=== PATIENT | male | born 1955 | race Caucasian/White ===

== ENCOUNTER 2021-06-18 15:53 | Inpatient (IN) ==
[2021-06-18] MEDS ORDERED: Naloxone 0.4 MG/ML INJ IVP PRN (20:09)
[2021-06-18] MEDS ORDERED: Ondansetron 4 MG/2 ML VIAL IVP PRN (20:09)
[2021-06-18] MEDS ORDERED: *HR* Promethazine 25 MG/ML VIAL IM PRN (20:09)
[2021-06-18] MEDS ORDERED: Acetaminophen 325 MG TABLET PO PRN (20:09)
[2021-06-18] MEDS ORDERED: *HR* OxyCODONE Immed Rel 5 MG TABLET PO PRN (20:09)
[2021-06-18] MEDS ORDERED: Melatonin 3 MG TABLET PO PRN (20:09)
[2021-06-18] MEDS ORDERED: Perflutren Lipid Microsphere 1.3 ML in 0.9 % Sodium Chloride 8.7 ML IVP PRN (20:11)
[2021-06-18] MEDS ORDERED: D5% in Water 1,000 ML IVC PRN (20:14)
[2021-06-18] MEDS ORDERED: *HR* Dextrose 50 % in Water (Vial) 50 ML VIAL IVP PRN (20:14)
[2021-06-18] MEDS ORDERED: Dextrose Gel 15 GM/37.5 ML TUBE PO PRN ×2 (20:14)
[2021-06-18] MEDS ORDERED: *HR* Heparin 5,000 UNIT/ML VIAL SQ SCH (22:00)
[2021-06-18] MEDS: Furosemide 40 MG/4 ML VIAL IVP SCH (22:30)
[2021-06-18] MEDS: Insulin DETEMIR 100 UNIT/ML X5UNITS SUBQ SCH (22:30)
[2021-06-19] MEDS: Insulin LISPRO 300 UNITS/3 ML VIAL SUBQ SCH ×4 (02:19→19:28)
[2021-06-19 02:54] LABS: Basophils # 0.1 K/mcL (0.0-0.2); Basophils % 0.5 %; Eosinophils # 0.1 K/mcL (0.0-0.6); Eosinophils % 0.7 %; Hematocrit 46.2 % (37.5-50.1); Immature Granulocytes % 0.4 % (0-4); Lymphocytes # 2.1 K/mcL (0.6-4.6); Lymphocytes % 20.8 %; Mean Corpuscular HGB Conc 32.5 g/dL (31.6-35.5); Mean Corpuscular Hemoglobin 28.7 pg (28.0-33.3); Mean Corpuscular Volume 88.3 fL (83.0-100.0); Monocytes # 0.7 K/mcL (0.0-1.3); Monocytes % 7.4 %; Platelet Count 188 K/mcL (140-400); Red Blood Count 5.23 M/mcL (4.19-5.50); Red Cell Distribution Width 14.6 % (11.5-14.5); Segmented Neutrophils % 70.2 %
[2021-06-19 03:06] LABS: INR 1.4; Prothrombin Time 15.9 Seconds (9.4-12.1)
[2021-06-19] MEDS ORDERED: *HR* Heparin 5,000 UNIT/ML VIAL IVP PRN (03:23)
[2021-06-19] MEDS ORDERED: *HR* Heparin 5,000 UNIT/ML VIAL IVP ONE (03:23)
[2021-06-19 03:32] LABS: Alanine Aminotransferase 16 Units/L (7-52); Albumin 4.1 g/dL (3.5-5.7); Albumin/Globulin Ratio 1.3 (1.1-2.2); Alkaline Phosphatase 62 Units/L (34-104); Aspartate Amino Transferase 18 Units/L (13-39); BUN/Creatinine Ratio 19 (6-26); Blood Urea Nitrogen 23 mg/dL (8-23); Calcium 9.6 mg/dL (8.6-10.3); Carbon Dioxide 32 mEq/L (23-29); Chloride 98 mEq/L (98-107); Chol/HDL Ratio 4.1 (0-4.9); Cholesterol 140 mg/dL (< 200); Globulin 3.1 g/dL (2.4-3.5); Glucose 128 mg/dL (70-105); HDL Cholesterol 34 mg/dL (40-59); LDL Cholesterol,Calculated 89 mg/dL (< 100); Magnesium 1.9 mg/dL (1.6-2.6); Osmolality,Calculated 295 (280-300); Phosphorous 4.2 mg/dL (2.7-4.5); Potassium 3.9 mEq/L (3.5-5.1); Sodium 140 mEq/L (136-145); Total Protein 7.2 g/dL (6.4-8.9); Triglycerides 87 mg/dL (< 150); eGFR For African Americans > 60 (> 60); eGFR For Non-African Americans 59 (> 60)
[2021-06-19] MEDS: Heparin 25,000UNIT/250ML 1/2NS 25,000 UNIT/250 ML IV.SOLN IVC SCH (04:03)
[2021-06-19] MEDS: Furosemide 40 MG/4 ML VIAL IVP SCH ×2 (11:35→16:16)
[2021-06-19] MEDS: Aspirin Enteric Coated 81 MG Tablet PO SCH (11:35)
[2021-06-19] MEDS: *HR* Heparin 5,000 UNIT/ML VIAL IVP PRN (11:46)
[2021-06-19] MEDS: carvediloL 6.25 MG TABLET PO SCH (16:16)
[2021-06-19] MEDS: Insulin DETEMIR 100 UNIT/ML X5UNITS SUBQ SCH (20:58)
[2021-06-20] MEDS: *HR* Heparin 5,000 UNIT/ML VIAL IVP PRN (01:21)
[2021-06-20] MEDS: Heparin 25,000UNIT/250ML 1/2NS 25,000 UNIT/250 ML IV.SOLN IVC SCH (02:24)
[2021-06-20 02:31] LABS: Basophils # 0.1 K/mcL (0.0-0.2); Basophils % 0.5 %; Eosinophils # 0.1 K/mcL (0.0-0.6); Hematocrit 47.1 % (37.5-50.1); Hemoglobin 15.6 g/dL (12.9-16.9); Immature Granulocytes % 0.2 % (0-4); Lymphocytes # 3.4 K/mcL (0.6-4.6); Mean Corpuscular HGB Conc 33.1 g/dL (31.6-35.5); Mean Corpuscular Hemoglobin 29.2 pg (28.0-33.3); Mean Corpuscular Volume 88.2 fL (83.0-100.0); Monocytes # 0.9 K/mcL (0.0-1.3); Monocytes % 7.3 %; Neutrophils # 7.3 K/mcL (1.6-8.9); Platelet Count 189 K/mcL (140-400); Red Blood Count 5.34 M/mcL (4.19-5.50); Red Cell Distribution Width 14.5 % (11.5-14.5); White Blood Count 11.8 K/mcL (4.3-11.1)
[2021-06-20 02:51] LABS: BUN/Creatinine Ratio 19 (6-26); Blood Urea Nitrogen 23 mg/dL (8-23); Calcium 9.5 mg/dL (8.6-10.3); Carbon Dioxide 31 mEq/L (23-29); Chloride 96 mEq/L (98-107); Glucose 135 mg/dL (70-105); Osmolality,Calculated 290 (280-300); Potassium 3.6 mEq/L (3.5-5.1); Sodium 137 mEq/L (136-145); eGFR For African Americans > 60 (> 60); eGFR For Non-African Americans 60 (> 60)
[2021-06-20] MEDS: Insulin LISPRO 300 UNITS/3 ML VIAL SUBQ SCH ×5 (06:00→21:38)
[2021-06-20] MEDS: Aspirin Enteric Coated 81 MG Tablet PO SCH (08:18)
[2021-06-20] MEDS: Furosemide 40 MG/4 ML VIAL IVP SCH (08:18)
[2021-06-20] MEDS: carvediloL 6.25 MG TABLET PO SCH (08:20)
[2021-06-20] MEDS: lisinopriL 5 MG TABLET PO SCH (09:56)
[2021-06-20] MEDS: Spironolactone 25 MG TABLET PO SCH (09:56)
[2021-06-20] MEDS ORDERED: ISOVUE-370 200 ML INFUS..BTL ONE (13:10)
[2021-06-20] MEDS ORDERED: *HR* Heparin 10,000 UNIT/10 ML VIAL ONE (13:10)
[2021-06-20] MEDS ORDERED: Heparin 1,000 UNITS/500 mL 500 ML ONE (13:10)
[2021-06-20] MEDS ORDERED: Nitroglycerin 1,000 MCG/5 ML VIAL IV ONE (13:11)
[2021-06-20] MEDS ORDERED: 0.9 % Sodium Chloride 2,000 ML ONE (13:11)
[2021-06-20] MEDS ORDERED: *HR* Midazolam HCl 2 MG/2 ML VIAL ONE (14:19)
[2021-06-20] MEDS ORDERED: *HR* FentaNYL (PF) 100 MCG/2 ML VIAL ONE (14:19)
[2021-06-20] MEDS: Nicotine 21 MG PATCH.TD24 TD SCH (16:12)
[2021-06-20] MEDS ORDERED: Furosemide 40 MG/4 ML VIAL IVP SCH (17:00)
[2021-06-20] MEDS ORDERED: carvediloL 6.25 MG TABLET PO SCH (17:00)
[2021-06-20] MEDS: Melatonin 3 MG TABLET PO SCH (21:43)
[2021-06-20] MEDS: Insulin DETEMIR 100 UNIT/ML X5UNITS SUBQ SCH (21:43)
[2021-06-21] MEDS: Ipratropium/Albuterol Neb 3 ML IH PRN ×2 (03:59→19:15)
[2021-06-21] MEDS: Insulin LISPRO 300 UNITS/3 ML VIAL SUBQ SCH ×4 (07:16→21:16)
[2021-06-21] MEDS ORDERED: carvediloL 6.25 MG TABLET PO SCH (08:00)
[2021-06-21] MEDS ORDERED: Furosemide 20 MG/2 ML VIAL IVP SCH (09:00)
[2021-06-21] MEDS: Spironolactone 25 MG TABLET PO SCH (09:12)
[2021-06-21] MEDS: Nicotine 21 MG PATCH.TD24 TD SCH (09:13)
[2021-06-21] MEDS: lisinopriL 5 MG TABLET PO SCH (09:15)
[2021-06-21] MEDS: Aspirin Enteric Coated 81 MG Tablet PO SCH (09:16)
[2021-06-21 10:54] LABS: Hematocrit 46.6 % (37.5-50.1); Hemoglobin 14.9 g/dL (12.9-16.9); Mean Corpuscular Hemoglobin 28.8 pg (28.0-33.3); Mean Platelet Volume 9.8 fL (9.4-12.4); Platelet Count 169 K/mcL (140-400); Red Blood Count 5.18 M/mcL (4.19-5.50); Red Cell Distribution Width 14.5 % (11.5-14.5); Segmented Neutrophils % 70.6 %
[2021-06-21 10:55] LABS: Basophils % 0.4 %; Eosinophils # 0.1 K/mcL (0.0-0.6); Eosinophils % 0.9 %; Immature Granulocytes % 0.6 % (0-4); Lymphocytes # 2.3 K/mcL (0.6-4.6); Lymphocytes % 22.6 %; Monocytes # 0.5 K/mcL (0.0-1.3); Monocytes % 4.9 %; Neutrophils # 7.1 K/mcL (1.6-8.9)
[2021-06-21 11:14] LABS: Calcium 9.1 mg/dL (8.6-10.3); Potassium 4.2 mEq/L (3.5-5.1)
[2021-06-21] MEDS: Magnesium Oxide 400 MG TABLET PO SCH ×2 (11:37→21:19)
[2021-06-21] MEDS: *HR* Amiodarone 200 MG TABLET PO SCH ×2 (11:38→21:18)
[2021-06-21 19:31] VITALS: BP 101/59; PULSE 78; TEMP 97.6; O2SAT 94
[2021-06-21] MEDS ORDERED: Metoprolol XL (24 HR) Succ 25 MG TAB.ER.24H PO SCH (21:00)
[2021-06-21] MEDS: Insulin DETEMIR 100 UNIT/ML X5UNITS SUBQ SCH (21:16)
[2021-06-21] MEDS: Melatonin 3 MG TABLET PO SCH (21:19)
== END 2021-06-21 22:25 | disposition short-term general hospital (02) | DRG 280 ==
LOC: 3ANU → SUATTDRO 18:55
PROVIDERS: ADMIT Pharmacist; ATTEND Internal Medicine